=== PATIENT | female | born 1970 | race Two or more races ===

== ENCOUNTER → 2019-07-03 | Day surgery (SDC) | payer BC ==
[~2019-07-03] VITALS: Ht 152.4 cm; Wt 66.2 kg
[~2019-07-03] MED LIST: BUPIVACAINE 0.25% INJ 50ML VIAL ONE; CEPH250C PO; CHOL1TAB28 PO; DOCU-94 PO; ENAL5TAB PO; HYDR-4833 GT; LIDOCAINE 1% HCL (LOCAL ANESTH.) INJ 20ML MDV ONE; LIDOCAINE W/ EPINEPHRINE 1% 20ML VIAL ONE; MIDAZOLAM HCL 1MG/1ML-2 ML VIAL ONE; ONDANSETRON HCL 4 MG/2 ML VIAL IV PRN; PROPOFOL 10 MG/ML 20 ML IV ONE; ceFAZolin 1GM/50ML 50 ML IV ONE; ePHEDrine SULFATE 50 MG/ML AMP IV PRN; fentaNYL CITRATE 100 MCG/2 ML VL IV ONE; fentaNYL CITRATE 100 MCG/2 ML VL IV PRN; fentaNYL CITRATE 100 MCG/2 ML VL ONE; hydrALAZINE HCL 20 MG/ML VL IV PRN
[2019-07-03 12:13] VITALS: BP 134/69
== END | disposition home or self-care (01) ==
LOC: SUR 09:06
PROVIDERS: ATTEND Surgery
DX: L72.0 Epidermal cyst (principal); I10 Essential (primary) hypertension; F17.210 Nicotine dependence, cigarettes, uncomplicated; Z98.891 History of uterine scar from previous surgery; Z98.890 Other specified postprocedural states; Z79.899 Other long term (current) drug therapy
CPT/HCPCS: 11406; 87070; 87075; 87205; 88304; J0690; J2001; J2250; J2704; J3010; J3490; 87077; 87186